=== PATIENT | female | born 1995 | race Hispanic/Latino ===

== ENCOUNTER 2019-07-28 21:11 | Observation (INO) | payer MEDICAID ==
[~2019-07-28] VITALS: Ht 157.5 cm; Wt 72.6 kg
[2019-07-28 21:35] VITALS: BP 117/63
[2019-07-28] MEDS ORDERED: LACTATED RINGERS 1000ML IV PRN (21:45)
[2019-07-28 21:50] LABS: APPEARANCE,URINE Clear (CLEAR); BILIRUBIN,URINE Negative (NEGATIVE); COLOR,URINE Yellow (YELLOW); GLUCOSE, URINE (UA) Negative (NEGATIVE); KETONES,URINE Negative (NEGATIVE); LEUKOCYTE ESTERASE ,URINE Trace (NEGATIVE); NITRATE,URINE Negative (NEGATIVE); OCCULT BLOOD,URINE Negative (NEGATIVE); PH,URINE 7.5 (5.0-8.0); PROTEIN,URINE Negative (NEGATIVE)
[2019-07-28 21:58] LABS: AMPHET/METH SCREEN,URINE NEGATIVE (NEGATIVE); BARBITURATE SCREEN, URINE NEGATIVE (NEGATIVE); BENZODIAZEPINES SCREEN,URINE NEGATIVE (NEGATIVE); CANNABINOID SCREEN,URINE NEGATIVE (NEGATIVE); COCAINE SCREEN,URINE NEGATIVE (NEGATIVE); OPIATE SCREEN,URINE NEGATIVE (NEGATIVE); PHENCYCLIDINE SCREEN,URINE NEGATIVE (NEGATIVE)
[2019-07-28 22:00] LABS: BACTERIA,URINE Rare /HPF (None Seen); MUCUS,URINE None Seen LPF (None Seen); RBC,URINE 0-1 /HPF (0-1)
[2019-07-28] MEDS: LACTATED RINGERS 1000ML 1,000 ML IV SCH (22:30)
[2019-07-28] MEDS ORDERED: GUAIFENESIN-DM 200/20 MG 10 ML PO PRN (23:45)
[2019-07-29] MEDS ORDERED: GUAIFENESIN-DM 200/20 MG 10 ML ONE (00:06)
[2019-07-29] MEDS: LACTATED RINGERS 1000ML 1,000 ML IV SCH (03:44)
== END 2019-07-29 09:33 | disposition home or self-care (01) ==
LOC: EDH 21:11 → LDH 21:37
PROVIDERS: ADMIT Obstetrics & Gynecology; ATTEND Obstetrics & Gynecology
DX: O26.892 Other specified pregnancy related conditions, second trimester (principal); R10.2 Pelvic and perineal pain; O99.512 Diseases of the respiratory system complicating pregnancy, second trimester; J06.9 Acute upper respiratory infection, unspecified; O47.02 False labor before 37 completed weeks of gestation, second trimester; O09.32 Supervision of pregnancy with insufficient antenatal care, second trimester; Z3A.23 23 weeks gestation of pregnancy
CPT/HCPCS: 76805; 80305; 81001; 87804 ×2; 99284; G0378 ×12; J7120; 96360; 96361